=== PATIENT | female | born 1990 | race Caucasian/White ===

== ENCOUNTER 2022-03-08 11:42 | Emergency (ER) | payer SELFPAY ==
[2022-03-08 11:53] VITALS: BP 173/103; PULSE 104; O2SAT 100
[2022-03-08] MEDS ORDERED: Rocephin 1000 MG INJ IM ONE (11:55)
[2022-03-08] MEDS ORDERED: TORAdol 30 mg Injection IM ONE (11:55)
[2022-03-08] MEDS ORDERED: Rocephin 1000 MG INJ ONE (11:59)
[2022-03-08] MEDS ORDERED: TORAdol 30 mg Injection ONE (11:59)
--- NOTE | 2022-03-08 12:00 | ERPHSYRPT ---
- History of Present Illness Time Seen by Provider: 03/08/22 11:56 Source: patient Exam Limitations: no limitations Patient Subjective Stated Complaint: Pt states "I have a seizure disorder and I had a seizure and broke three teeth and it hurts. I am supposed to fly home on thursday but I have covid and I have a backup plan with an oral surgeon on thursday if I can fly home and thu if I cannot but it hurts so bad." Triage Nursing Assessment: Pt presented alert and oriented X 3, skin pwd PT ambualtes with an upright steady gait, able to speak in full sentences pt has three broken teeth. Physician History: Pt states "I have a seizure disorder and I had a seizure and broke three teeth and it hurts. I am supposed to fly home on thursday but I have covid and I have a backup plan with an oral surgeon on thursday if I can fly home and thu if I cannot but it hurts so bad." Patient is 31-year-old female with significant past medical history of seizure, who recently had a seizure activity and after that she broke her 3 tooth 1 on the right upper jaw as well as 2 on the left lower jaw. Tooth or how broken. Patient already has a surgical appointment with dimethylaniline sulfator operator on Thursday but since then pain has got worse she came to the emergency room. Timing/Duration: today Severity: moderate Associated Symptoms: denies symptoms Allergies/Adverse Reactions: No Known Drug Allergies Allergy (Verified 03/08/22 11:52) Home Medications: Lorazepam 1 mg [Ativan 1 MG] 1 mg PO DAILY 03/08/22 [History] Hx Tetanus, Diphtheria Vaccination/Date Given: Yes Hx Influenza Vaccination/Date Given: No Hx Pneumococcal Vaccination/Date Given: No Immunizations Up to Date: Yes Travel Risk - International Travel Have you traveled outside of the country in past 3 weeks: No - Coronavirus Screening Are you exhibiting any of the following symptoms?: No Close contact with a COVID-19 positive Pt in past 14-21 Days: No - Vaccine Status Have you recieved a Covid-19 vaccination: No - Review of Systems Constitutional: No Fever, No Chills Eyes: No Symptoms Ears, Nose, & Throat: No Symptoms, Loose Teeth Respiratory: No Cough, No Dyspnea Cardiac: No Chest Pain, No Edema, No Syncope Abdominal/Gastrointestinal: No Abdominal Pain, No Nausea, No Vomiting, No Diarrhea Genitourinary Symptoms: No Dysuria Musculoskeletal: No Back Pain, No Neck Pain Skin: No Rash Neurological: No Dizziness, No Focal Weakness, No Sensory Changes Psychological: No Symptoms Endocrine: No Symptoms All Other Systems: Reviewed and Negative - Past Medical History Pertinent Past Medical History: Yes Other Medical History: seizures - Past Surgical History Past Surgical History: No - Social History Smoking Status: Former smoker Exposure to second hand smoke: No Drug Use: none Patient Lives Alone: No - Female History Hx Last Menstrual Period: 03/08/2022 Hx Now: No - Nursing Vital Signs Nursing Vital Signs: Initial Vital Signs Temperature 97.8 F 03/08/22 11:47 Pulse Rate 104 H 03/08/22 11:47 Respiratory Rate 20 03/08/22 11:47 Blood Pressure 173/103 03/08/22 11:47 O2 Sat by Pulse Oximetry 100 03/08/22 11:47 Pain Scale Pain Intensity 8 - Physical Exam General Appearance: no apparent distress, alert Eye Exam: PERRL/EOMI, eyes nml inspection Ears, Nose, Throat Exam: normal ENT inspection, TMs normal, pharynx normal, moist mucous membranes, other (broken teeth one right upper and 2 left lower jaw) Neck Exam: normal inspection, non-tender, supple, full range of motion Respiratory Exam: normal breath sounds, lungs clear, No respiratory distress Cardiovascular Exam: regular rate/rhythm, normal heart sounds, normal peripheral pulses Gastrointestinal/Abdomen Exam: soft, normal bowel sounds, No tenderness, No mass Back Exam: normal inspection, normal range of motion, No CVA tenderness, No vertebral tenderness Extremity Exam: normal inspection, normal range of motion, pelvis stable Neurologic Exam: alert, oriented x 3, cooperative, normal mood/affect, nml cerebellar function, nml station & gait, sensation nml, No motor deficits Skin Exam: normal color, warm, dry, No rash Lymphatic Exam: No adenopathy SpO2: 100 - Course Nursing assessment & vital signs reviewed: Yes Ordered Tests: Medication Summary Generic Name Dose Route Start Last Admin Trade Name Freq PRN Reason Stop Dose Admin Ceftriaxone Sodium 1,000 mg 03/08/22 11:55 Ceftriaxone Sodium 1000 Mg Inj Vial IM 03/08/22 11:56 STAT ONE Ketorolac Tromethamine 60 mg 03/08/22 11:55 Ketorolac Tromethamine 30 Mg/Ml Inj IM 03/08/22 11:56 STAT ONE - Progress Progress: improved, pain not gone completely Counseled pt/family regarding: diagnosis, need for follow-up - Departure Departure Disposition: Home Clinical Impression: Broken teeth Qualifiers: Encounter type: initial encounter Fracture type: closed Qualified Code(s): S02.5XXA - Fracture of tooth (traumatic), initial encounter for closed fracture Condition: Stable Critical Care Time: No Instructions: Fractured Tooth (DC) Additional Instructions: Discharge/Care Plan KLAUDIA JETER was seen on 03/08/22 in the Emergency Room. The patient was counseled regarding Diagnosis,Lab results, Imaging studies, need for follow up and when to return to the Emergency Room. Prescriptions given: Discharge Note I have spoken with the patient and/or caregivers. I have explained the patient's condition, diagnosis and treatment plan based on the information available to me at this time. I have answered the patient's and/or caregiver's questions and addressed any concerns. The patient and/or caregivers have as good understanding of the patient's diagnosis, condition and treatment plan as can be expected at this point. The vital signs have been stable. The patient's condition is stable and appropriate for discharge from the emergency department. The patient will pursue further outpatient evaluation with the primary care physician or other designated or consulting physician as outlined in the discharge instructions. The patient and/or caregivers are agreeable to this plan of care and follow-up instructions have been explained in detail. The patient and/or caregivers have received these instruction. The patient/and or caregivers are aware that any significant change in condition or worsening of symptoms should prompt an immediate return to this or the closest emergency department or call 911. KLAUDIA JETER was seen on 03/08/22 n the Emergency Room. At that time you were treated for an emergent condition, during your visit Laboratory, Radiology and/or other procedures may have been ordered. It is very important that you follow-up with your Primary Care Physician within the next 24-48 hours to review your Emergency Room visit and the final results of testing that was ordered. Some test results such as Urine Cultures, Blood Cultures, and other cultures if ordered will not be finalized for 24-48 hours. If you do not have a Primary Care Provider please call the medical records department at [phone] ext [phone] to obtain a copy of your results or you may sign into our patient portal to obtain these results by visiting us @ [email or web address] and completing the following steps: 1. Click on the Patient Portal link 2. Click the Patient Self Enrollment Link to complete the enrollment form and entering your 3. Once the enrollment form is completed you will receive an email with a temporary ID and password at the email address you provided. 4. Next choose a user name and password. Your user name must be at least 4 characters long and your password must be at least 4 characters long. 5. Choose a security question from the list and provide your answer to the question. If you already have signed into the Health Portal you may access your Health Care Information 02/03 by the following steps: 1. Login to our website @ [email or web address] 2. Enter your original user name and password. FAQS The [facility] Health Portal is an online tool that contains your Lab Results, Radiology Reports, Visit History, Discharge Instructions and Health Summary Lab and Radiology Results will not be available for 72 hours on the portal. The Portal is a secure site, passwords are encryted and URLs are re-written so they cannot be copied and pasted. You and authorized family members are the only ones who can access your Portal. Also there is a timeout feature that protects your information if you leave the Portal page open. If you have technical difficulty please use the Contact Us link on the page this will allow you to submit any questions you have regarding the Portal or you may contact the Medical Record Department at [phone] ext [phone]. Prescriptions: Amoxicillin 500 mg PO TID #30 tablet Naproxen 375 mg [Naprosyn 375 mg] 375 mg PO Q8H #30 tablet
== END 2022-03-08 12:22 | disposition home or self-care (01) ==
LOC: ED 11:42
DX: S02.5XXA Fracture of tooth (traumatic), initial encounter for closed fracture (principal); K08.89 Other specified disorders of teeth and supporting structures; U07.1 COVID-19; G40.909 Epilepsy, unspecified, not intractable, without status epilepticus; Z28.310 Unvaccinated for COVID-19
CPT/HCPCS: 96372; 99283; J0696; J1885